=== PATIENT | male | born 1945 | race Asian ===

== ENCOUNTER 2022-05-27 19:20 | Emergency (ER) | payer OTHER ==
[~2022-05-27] VITALS: Ht 172.7 cm; Wt 94.3 kg
[2022-05-27 20:04] LABS: PLATELET COUNT 207 K/uL (142-355)
[2022-05-27 20:15] LABS: POTASSIUM 4.2 mmol/L (3.6-5.2)
[2022-05-27 20:45] VITALS: BP 180/90; TEMP 98.7
[2022-05-27] MEDS ORDERED: AMLODIPINE BESYLATE PO (23:52)
[2022-05-27] MEDS ORDERED: DONEPEZIL HYDRO10 MG PO (23:52)
[2022-05-27] MEDS ORDERED: FERROUS SULF325 MG PO (23:53)
[2022-05-27] MEDS ORDERED: OXYB5TAB64 PO (23:54)
[2022-05-27] MEDS ORDERED: CLOP75TA2 PO (23:55)
[2022-05-27] MEDS ORDERED: QUET25TA2 PO ×2 (23:56→23:57)
[2022-05-27] MEDS ORDERED: EQL VITAMIN PO (23:58)
[2022-05-28] MEDS ORDERED: TYLENOL325 MG PO (00:03)
== END 2022-05-27 20:45 | disposition still patient (30) ==
LOC: ED 19:20
PROVIDERS: Hospitalist
DX: F25.8 Other schizoaffective disorders (principal); R46.89 Other symptoms and signs involving appearance and behavior; Z11.52 Encounter for screening for COVID-19; Z04.6 Encounter for general psychiatric examination, requested by authority
CPT/HCPCS: 36415; 80053; 85027; 87635; 93005; 99283; U0003